=== PATIENT | male | born 1975 | race Caucasian/White ===

== ENCOUNTER 2016-12-04 14:31 | Emergency (ER) | payer MEDICAID ==
--- NOTE | 2016-12-04 15:10 | REP ---
Clinical: Trauma. Technique: AP, lateral, bilateral oblique views left foot. Comparison 06/03/2015. Findings: The osseous structures and joint spaces are intact and normal. There is no evidence for acute fracture or dislocation. Surrounding soft tissues are unremarkable. No subcutaneous emphysema or radiodense foreign body. Lateral view demonstrates small calcaneal heal spur. Impression: No acute fracture or dislocation. Signed by Richard Mehta MD 12/04/2016 03:02 P
--- NOTE | 2016-12-04 15:51 | EDDOCDS ---
Physician Documentation [facility] Name: Toney Yost Age: 41 yrs Sex: Male : 1975 Arrival Date: 12/04/2016 Time: 14:31 Bed I6 / Private MD: No Pcp Disposition: 12/04/16 15:35 Discharged to Home/Self Care. Impression: Sprain of tarsal ligament of left foot, Sprain of tarsometatarsal ligament of left foot. - Condition is Stable. - Discharge Instructions: Foot Sprain. - Medication Reconciliation, Local Pharmacy Hours, Work Release Form - 1 day form. - Follow up: Orthopaedics, [facility]; When: Call to arrange an appointment; Reason: Further diagnostic work-up, Recheck today's complaints, Continuance of care. - Problem is new. - Symptoms are unchanged. Historical: - Allergies: no known allergies; - Home Meds: 1. none - PMHx: Stroke; Thyroid problem; hernia; - PSHx: rt hand surgery; - Social history: Smoking status: Patient uses tobacco products, current every day smoker. No barriers to communication noted, The patient speaks fluent Mauritian, Speaks appropriately for age. - Family history: Not pertinent. - : The pt / caregiver states he / she is not on anticoagulants. Home medication list is obtained from the patient. - Exposure Risk Screening:: None identified. Vital Signs: 12/04 14:33 BP 126 / 71; Pulse 98; Resp 18 S; Temp 97.8(O); Pulse Ox 99% on R/A; Weight 90.72 kg / gr2 200 lbs (R); Height 5 ft. 9 in. (175.26 cm) (R); Pain 9/10; 15:47 BP 120 / 78; Pulse 91; Resp 18; Temp 97.3; Pulse Ox 99% ; Pain 10/10; pml 14:33 Body Mass Index 29.53 (90.72 kg, 175.26 cm) gr2 MDM: 14:40 Foot, Complete Ordered. EDMS 15:35 Mane Wrap ordered. btw Signatures: Dispatcher [employer] EDMS Herminia Kenney RN RN srm Wolfenden, Brandon, PA PA btw Jennifer Ellington RN RN pml MTDD
--- NOTE | 2016-12-04 15:51 | EDDOCDS ---
Nurse's Notes [facility] Name: Toney Yost Age: 41 yrs Sex: Male : 1975 Arrival Date: 12/04/2016 Time: 14:31 Bed I6 / 28 Private MD: No Pcp Diagnosis: Sprain of tarsal ligament of left foot;Sprain of tarsometatarsal ligament of left foot Presentation: 12/04 14:36 Presenting complaint: Patient states: fell yesterday injuring left foot. Adult Sepsis srm Screening: The patient does not have new or worsening altered mentation. Patient's respiratory rate is less than 22. Systolic blood pressure is greater than 100. Patient has a qSOFA score of 0- Negative Sepsis Screen. Suicide/Homicide risk assessment- the patient denies having any suicidal and/or homicidal ideations and does not present with any other emotional, behavioral or mental health complaints. Status: Patient is not a district service manager or dependent. Transition of care: patient was not received from another setting of care. 14:36 Acuity: CHARLES Level 4 srm 14:36 Method Of Arrival: Walkin/Carried/Asstd srm Triage Assessment: 14:37 General: Appears in no apparent distress, Behavior is appropriate for age, cooperative. srm Pain: Pain currently is 10 out of 10 on a pain scale. HIV screening NA for this visit Offered previously. Musculoskeletal: Circulation, motion, and sensation intact Capillary refill < 3 seconds in left toes. 14:39 Musculoskeletal: no swelling or bruising noted to left foot. srm Historical: - Allergies: no known allergies; - Home Meds: 1. none - PMHx: Stroke; Thyroid problem; hernia; - PSHx: rt hand surgery; - Social history: Smoking status: Patient uses tobacco products, current every day smoker. No barriers to communication noted, The patient speaks fluent Vietnamese, Speaks appropriately for age. - Family history: Not pertinent. - : The pt / caregiver states he / she is not on anticoagulants. Home medication list is obtained from the patient. - Exposure Risk Screening:: None identified. Screenin:47 Screening information is obtained from the patient. Fall risk: No risks identified. pml Assistance ADL's: requires no assistance with activities of daily living. Abuse/DV Screen: The patient / caregiver reports he/she is: not in a situation that causes fear, pain or injury. Nutritional screening: No deficits noted. Advance Directives: Currently, there is no health care proxy. home support is adequate. Assessment: 15:47 General: Appears in no apparent distress, comfortable, Behavior is appropriate for age, pml cooperative. Pain: Location: left foot Pain currently is 10 out of 10 on a pain scale. Neurological: Level of Consciousness is awake, alert, Oriented to person, place, time. Cardiovascular: Capillary refill < 3 seconds. Respiratory: Airway is patent Respiratory effort is even, unlabored, Respiratory pattern is regular, symmetrical. GI: Abdomen is non- distended. Derm: Skin is pink, warm & dry. Musculoskeletal: Circulation, motion, and sensation intact Capillary refill < 3 seconds No deformity noted Swelling absent. Vital Signs: 14:33 BP 126 / 71; Pulse 98; Resp 18 S; Temp 97.8(O); Pulse Ox 99% on R/A; Weight 90.72 kg gr2 (R); Height 5 ft. 9 in. (175.26 cm) (R); Pain 9/10; 15:47 BP 120 / 78; Pulse 91; Resp 18; Temp 97.3; Pulse Ox 99% ; Pain 10/10; pml 14:33 Body Mass Index 29.53 (90.72 kg, 175.26 cm) gr2 Vitals: 14:33 Log In Time: December 04, 2016 at 14:33. gr2 ED Course: 14:32 Patient visited by Lv Suárez. gr2 14:32 Patient moved to Waiting gr2 14:33 No Pcp is Private Physician. gr2 14:35 Patient visited by Lv Suárez. gr2 14:35 Patient moved to Pre RCE gr2 14:37 Triage Initiated srm 15:14 Behzad Rolon PA is PHCP. btw 15:14 Farrah Cullen MD is Attending Physician. btw 15:14 Patient moved to I btw 15:34 Patient visited by Behzad Rolon PA. btw 15:[facility] btw 15:47 The patient / caregiver is instructed regarding the plan of care and ED course. Patient pml has correct armband on for positive identification. Bed in low position. Side rails up X2. 15:48 Foot, Complete Returned. EDMS 15:49 No IV's were initiated during this patient's visit. No procedures done that require pml assistance. Order Results: Radiology Order: Foot, Complete Test: Foot, Complete REASON FOR EXAMINATION: Trauma; Clinical: Trauma.; ; Technique: AP, lateral, bilateral oblique views left foot.; ; Comparison 06/03/2015.; ; Findings: The osseous structures and joint spaces are intact and normal. There; is no evidence for acute fracture or dislocation. Surrounding soft tissues are; unremarkable. No subcutaneous emphysema or radiodense foreign body. Lateral view; demonstrates small calcaneal heal spur.; ; Impression:; No acute fracture or dislocation.; ; ; Signed by; Richard Mehta MD 12/04/2016 03:02 P; Outcome: 15:35 Discharge ordered by Provider. btw 15:49 Discharge Assessment: Patient awake, alert and oriented x 3. No cognitive and/or pml functional deficits noted. Patient verbalized understanding of disposition instructions. patient administered narcotics - no. The following High Risk Discharge criteria are identified: None. Discharged to home ambulatory. Condition: good Condition: stable. Discharge instructions given to patient, Instructed on discharge instructions, follow up and referral plans. Rest, Ice, Compression and Elevation. Demonstrated understanding of instructions, Pt was receptive of discharge instructions/ teaching. No special radiology studies were completed. Property sent home with patient. 15:50 Patient left the ED. pml Signatures: Dispatcher [employer] EDMS Herminia Kenney, RN Behzad Fonseca PA PA btw Jennifer Ellington RN RN pml Raymond, Gainslee gr2 MTDDaisy
--- NOTE | 2016-12-06 16:51 | EDDOCDS ---
Nurse's Notes [facility] Name: Toney Yost Age: 41 yrs Sex: Male : 1975 Arrival Date: 12/04/2016 Time: 14:31 Bed I6 / 28 Private MD: No Pcp Diagnosis: Sprain of tarsal ligament of left foot;Sprain of tarsometatarsal ligament of left foot Presentation: 12/04 14:36 Presenting complaint: Patient states: fell yesterday injuring left foot. Adult Sepsis srm Screening: The patient does not have new or worsening altered mentation. Patient's respiratory rate is less than 22. Systolic blood pressure is greater than 100. Patient has a qSOFA score of 0- Negative Sepsis Screen. Suicide/Homicide risk assessment- the patient denies having any suicidal and/or homicidal ideations and does not present with any other emotional, behavioral or mental health complaints. Status: Patient is not a residential service technician or dependent. Transition of care: patient was not received from another setting of care. 14:36 Acuity: CHARLES Level 4 srm 14:36 Method Of Arrival: Walkin/Carried/Asstd srm Triage Assessment: 14:37 General: Appears in no apparent distress, Behavior is appropriate for age, cooperative. srm Pain: Pain currently is 10 out of 10 on a pain scale. HIV screening NA for this visit Offered previously. Musculoskeletal: Circulation, motion, and sensation intact Capillary refill < 3 seconds in left toes. 14:39 Musculoskeletal: no swelling or bruising noted to left foot. srm Historical: - Allergies: no known allergies; - Home Meds: 1. none - PMHx: Stroke; Thyroid problem; hernia; - PSHx: rt hand surgery; - Social history: Smoking status: Patient uses tobacco products, current every day smoker. No barriers to communication noted, The patient speaks fluent Czech, Speaks appropriately for age. - Family history: Not pertinent. - : The pt / caregiver states he / she is not on anticoagulants. Home medication list is obtained from the patient. - Exposure Risk Screening:: None identified. Screenin:47 Screening information is obtained from the patient. Fall risk: No risks identified. pml Assistance ADL's: requires no assistance with activities of daily living. Abuse/DV Screen: The patient / caregiver reports he/she is: not in a situation that causes fear, pain or injury. Nutritional screening: No deficits noted. Advance Directives: Currently, there is no health care proxy. home support is adequate. Assessment: 15:47 General: Appears in no apparent distress, comfortable, Behavior is appropriate for age, pml cooperative. Pain: Location: left foot Pain currently is 10 out of 10 on a pain scale. Neurological: Level of Consciousness is awake, alert, Oriented to person, place, time. Cardiovascular: Capillary refill < 3 seconds. Respiratory: Airway is patent Respiratory effort is even, unlabored, Respiratory pattern is regular, symmetrical. GI: Abdomen is non- distended. Derm: Skin is pink, warm & dry. Musculoskeletal: Circulation, motion, and sensation intact Capillary refill < 3 seconds No deformity noted Swelling absent. Vital Signs: 14:33 BP 126 / 71; Pulse 98; Resp 18 S; Temp 97.8(O); Pulse Ox 99% on R/A; Weight 90.72 kg gr2 (R); Height 5 ft. 9 in. (175.26 cm) (R); Pain 9/10; 15:47 BP 120 / 78; Pulse 91; Resp 18; Temp 97.3; Pulse Ox 99% ; Pain 10/10; pml 14:33 Body Mass Index 29.53 (90.72 kg, 175.26 cm) gr2 Vitals: 14:33 Log In Time: December 04, 2016 at 14:33. gr2 ED Course: 14:32 Patient visited by Lv Suárez. gr2 14:32 Patient moved to Waiting gr2 14:33 No Pcp is Private Physician. gr2 14:35 Patient visited by Lv Suárez. gr2 14:35 Patient moved to Pre RCE gr2 14:37 Triage Initiated srm 15:14 Behzad Rolon PA is PHCP. btw 15:14 Farrah Cullen MD is Attending Physician. btw 15:14 Patient moved to I btw 15:34 Patient visited by Behzad Rolon PA. btw 15:[facility] btw 15:47 The patient / caregiver is instructed regarding the plan of care and ED course. Patient pml has correct armband on for positive identification. Bed in low position. Side rails up X2. 15:48 Foot, Complete Returned. EDMS 15:49 No IV's were initiated during this patient's visit. No procedures done that require pml assistance. 16:25 [facility] Payment Agreement was scanned into [employer] and attached to record. [facility] 21:19 T-Sheet-- Draft Copy was scanned into [employer] and attached to record. klr Order Results: Radiology Order: Foot, Complete Test: Foot, Complete REASON FOR EXAMINATION: Trauma; Clinical: Trauma.; ; Technique: AP, lateral, bilateral oblique views left foot.; ; Comparison 06/03/2015.; ; Findings: The osseous structures and joint spaces are intact and normal. There; is no evidence for acute fracture or dislocation. Surrounding soft tissues are; unremarkable. No subcutaneous emphysema or radiodense foreign body. Lateral view; demonstrates small calcaneal heal spur.; ; Impression:; No acute fracture or dislocation.; ; ; Signed by; Richard Mehta MD 12/04/2016 03:02 P; Outcome: 15:35 Discharge ordered by Provider. [facility] 15:49 Discharge Assessment: Patient awake, alert and oriented x 3. No cognitive and/or pml functional deficits noted. Patient verbalized understanding of disposition instructions. patient administered narcotics - no. The following High Risk Discharge criteria are identified: None. Discharged to home ambulatory. Condition: good Condition: stable. Discharge instructions given to patient, Instructed on discharge instructions, follow up and referral plans. Rest, Ice, Compression and Elevation. Demonstrated understanding of instructions, Pt was receptive of discharge instructions/ teaching. No special radiology studies were completed. Property sent home with patient. 15:50 Patient left the ED. pml Signatures: Dispatcher [facility] EDAZ Herminia Kenney RN RN srm Wolfenden, Brandon, PA PA btw Jennifer Ellignton RN RN pml Raymond, Gainslee gr2 Leslie Noe Kathie klr Chart Complete MTDD
--- NOTE | 2016-12-06 16:51 | EDDOCDS ---
Physician Documentation [facility] Name: Toney Yost Age: 41 yrs Sex: Male : 1975 Arrival Date: 12/04/2016 Time: 14:31 Bed I6 / Private MD: No Pcp Disposition: 12/04/16 15:35 Discharged to Home/Self Care. Impression: Sprain of tarsal ligament of left foot, Sprain of tarsometatarsal ligament of left foot. - Condition is Stable. - Discharge Instructions: Foot Sprain. - Medication Reconciliation, Local Pharmacy Hours, Work Release Form - 1 day form. - Follow up: Orthopaedics, [facility]; When: Call to arrange an appointment; Reason: Further diagnostic work-up, Recheck today's complaints, Continuance of care. - Problem is new. - Symptoms are unchanged. Historical: - Allergies: no known allergies; - Home Meds: 1. none - PMHx: Stroke; Thyroid problem; hernia; - PSHx: rt hand surgery; - Social history: Smoking status: Patient uses tobacco products, current every day smoker. No barriers to communication noted, The patient speaks fluent Paraguayan, Speaks appropriately for age. - Family history: Not pertinent. - : The pt / caregiver states he / she is not on anticoagulants. Home medication list is obtained from the patient. - Exposure Risk Screening:: None identified. Vital Signs: 12/04 14:33 BP 126 / 71; Pulse 98; Resp 18 S; Temp 97.8(O); Pulse Ox 99% on R/A; Weight 90.72 kg / gr2 200 lbs (R); Height 5 ft. 9 in. (175.26 cm) (R); Pain 9/10; 15:47 BP 120 / 78; Pulse 91; Resp 18; Temp 97.3; Pulse Ox 99% ; Pain 10/10; pml 14:33 Body Mass Index 29.53 (90.72 kg, 175.26 cm) gr2 MDM: 14:40 Foot, Complete Ordered. EDMS 15:35 Mane Wrap ordered. btw [facility] was scanned into [employer] and attached to record. b 16:25 Financial registration complete. gjb 21:19 T-Sheet-- Draft Copy was scanned into [employer] and attached to record. klr Signatures: Dispatcher [employer] Herminia Salmeron RN RN srm Wolfenden, Brandon, PA PA btw Quay, Paulina, RN RN pml Beck, Gabriela gjb Redder, Kathie klr The chart was reviewed and I authenticate all verbal orders and agree with the evaluation and treatment provided.Attachments: 16:25 [facility] Payment Agreement gjbro 21:19 T-Sheet-- Draft Copy klr Chart Complete MTDD
--- NOTE | 2016-12-06 16:51 | EDDOCDS ---
Physician Documentation [facility] Name: Toney Yost Age: 41 yrs Sex: Male : 1975 Arrival Date: 12/04/2016 Time: 14:31 Bed I6 / Private MD: No Pcp Disposition: 12/04/16 15:35 Discharged to Home/Self Care. Impression: Sprain of tarsal ligament of left foot, Sprain of tarsometatarsal ligament of left foot. - Condition is Stable. - Discharge Instructions: Foot Sprain. - Medication Reconciliation, Local Pharmacy Hours, Work Release Form - 1 day form. - Follow up: Orthopaedics, [facility]; When: Call to arrange an appointment; Reason: Further diagnostic work-up, Recheck today's complaints, Continuance of care. - Problem is new. - Symptoms are unchanged. Historical: - Allergies: no known allergies; - Home Meds: 1. none - PMHx: Stroke; Thyroid problem; hernia; - PSHx: rt hand surgery; - Social history: Smoking status: Patient uses tobacco products, current every day smoker. No barriers to communication noted, The patient speaks fluent Belgian, Speaks appropriately for age. - Family history: Not pertinent. - : The pt / caregiver states he / she is not on anticoagulants. Home medication list is obtained from the patient. - Exposure Risk Screening:: None identified. Vital Signs: 12/04 14:33 BP 126 / 71; Pulse 98; Resp 18 S; Temp 97.8(O); Pulse Ox 99% on R/A; Weight 90.72 kg / gr2 200 lbs (R); Height 5 ft. 9 in. (175.26 cm) (R); Pain 9/10; 15:47 BP 120 / 78; Pulse 91; Resp 18; Temp 97.3; Pulse Ox 99% ; Pain 10/10; pml 14:33 Body Mass Index 29.53 (90.72 kg, 175.26 cm) gr2 MDM: 14:40 Foot, Complete Ordered. EDMS 15:35 Mane Wrap ordered. btw 16:25 [facility] Agreement was scanned into [employer] and attached to record. b 16:25 Financial registration complete. gjb 21:19 T-Sheet-- Draft Copy was scanned into [employer] and attached to record. klr Signatures: Dispatcher [employer] Herminia Salmeron RN RN srm Wolfenden, Brandon, PA PA btw Quay, Paulina, RN RN pml Beck, Gabriela gjb Redder, Kathie klr The chart was reviewed and I authenticate all verbal orders and agree with the evaluation and treatment provided.Attachments: 16:25 [facility] Payment Agreement gjbro 21:19 T-Sheet-- Draft Copy klr Chart Complete MTDD
== END 2016-12-04 15:50 | disposition home or self-care (01) ==
LOC: M ED 14:31
DX: S93.612A Sprain of tarsal ligament of left foot, initial encounter (principal); S93.622A Sprain of tarsometatarsal ligament of left foot, initial encounter; W00.0XXA Fall on same level due to ice and snow, initial encounter; Y92.098 Other place in other non-institutional residence as the place of occurrence of the external cause; Y93.89 Activity, other specified; Y99.8 Other external cause status; F17.210 Nicotine dependence, cigarettes, uncomplicated

== ENCOUNTER 2018-06-15 18:32 | Emergency (ER) | payer MEDICAID, SELFPAY ==
[2018-06-15] MEDS: ceFAZolin SOD 1 GM in D5W MINI-BAG PLUS 50 ML IV (19:21)
[2018-06-15 19:23] LABS: BASO # 0.1 10^3/uL (0.0-0.2); BASO % 0.7 % (0.0-1.0); EOS # 0.2 10^3/uL (0.0-0.50); EOS % 1.9 % (0.0-3.0); HEMATOCRIT 43.6 % (42.0-52.0); HEMOGLOBIN 14.6 g/dl (13.5-17.5); IMMATURE GRANULOCYTE % 0.2 % (0-3.0); LYMPH % 31.4 % (24.0-44.0); MEAN CORPUSCULAR HEMOGLOBIN 31.7 pg (27.0-33.0); MEAN CORPUSCULAR HGB CONC 33.5 g/dl (32.0-36.5); MEAN CORPUSCULAR VOLUME 94.8 fl (80.0-96.0); MONO # 1.1 10^3/uL (0.0-0.8); MONO % 11.2 % (0.0-5.0); NEUTROPHILS # 5.2 10^3/uL (1.8-7.7); NEUTROPHILS % 54.6 % (36.0-66.0); PLATELET COUNT, AUTOMATED 258 10^3/uL (150-450); RED CELL DISTRIBUTION WIDTH 12.5 % (11.5-14.5); WHITE BLOOD COUNT 9.6 10^3/uL (4.0-10.0)
[2018-06-15 19:51] LABS: ANION GAP 5 MEQ/L (8-16); BLOOD UREA NITROGEN 12 MG/DL (7-18); CALCIUM LEVEL 8.9 MG/DL (8.5-10.1); CARBON DIOXIDE LEVEL 30 MEQ/L (21-32); CHLORIDE LEVEL 107 MEQ/L (98-107); CREATININE FOR GFR 1.15 MG/DL (0.70-1.30); GLOMERULAR FILTRATION RATE > 60.0 (>60); GLUCOSE, FASTING 76 MG/DL (70-100); POTASSIUM SERUM 3.7 MEQ/L (3.5-5.1); SODIUM LEVEL 142 MEQ/L (136-145)
[2018-06-15] MEDS: MORPHINE 4 MG/ML 1ML VIAL/SYRINGE (J2270) IV ×2 (20:13)
[2018-06-15] MEDS: LIDOCAINE 2% MDV 20 ML VIAL SC ×2 (20:14)
[2018-06-15] MEDS: NORCO 5/325MG TABLET (BULK FOR ED) PO ×2 (21:45)
== END 2018-06-15 21:44 | disposition home or self-care (01) ==
LOC: M ED 18:32
DX: S63.121A Subluxation of interphalangeal joint of right thumb, initial encounter (principal); V18.0XXA Pedal cycle driver injured in noncollision transport accident in nontraffic accident, initial encounter; Y92.410 Unspecified street and highway as the place of occurrence of the external cause; F17.210 Nicotine dependence, cigarettes, uncomplicated; Z98.890 Other specified postprocedural states
CPT/HCPCS: J0690

== ENCOUNTER → 2018-12-11 | Outpatient (REF) | payer MEDICAID, OTHER ==
[~2018-12-11] MED LIST: KEFL500C17 PO; NORCOTAB PO
[2018-12-11 19:33] LABS: BASO # 0.1 10^3/uL (0.0-0.2); BASO % 0.8 % (0.0-1.0); EOS # 0.2 10^3/uL (0.0-0.50); EOS % 1.7 % (0.0-3.0); HEMATOCRIT 53.1 % (42.0-52.0); HEMOGLOBIN 17.8 g/dl (13.5-17.5); LYMPH # 3.2 10^3/uL (1.5-4.5); MEAN CORPUSCULAR HEMOGLOBIN 30.3 pg (27.0-33.0); MEAN CORPUSCULAR HGB CONC 33.5 g/dl (32.0-36.5); MEAN CORPUSCULAR VOLUME 90.5 fl (80.0-96.0); MONO # 0.9 10^3/uL (0.0-0.8); MONO % 7.9 % (0.0-5.0); NEUTROPHILS # 6.6 10^3/uL (1.8-7.7); NEUTROPHILS % 60.2 % (36.0-66.0); PLATELET COUNT, AUTOMATED 329 10^3/uL (150-450); RED BLOOD COUNT 5.87 10^6/uL (4.30-6.10); WHITE BLOOD COUNT 10.9 10^3/uL (4.0-10.0)
[2018-12-11 20:29] LABS: HEMOGLOBIN A1c 5.8 %
[2018-12-11 22:56] LABS: ALT/SGPT 41 U/L (12-78); BILIRUBIN,TOTAL 0.2 MG/DL (0.2-1.0); BLOOD UREA NITROGEN 14 MG/DL (7-18); CALCIUM LEVEL 8.7 MG/DL (8.5-10.1); CARBON DIOXIDE LEVEL 28 MEQ/L (21-32); CHLORIDE LEVEL 106 MEQ/L (98-107); CHOLESTEROL LEVEL 222 MG/DL (<200); CHOLESTEROL RISK RATIO 5.045 (<5); CREATININE FOR GFR 0.89 MG/DL (0.70-1.30); FREE T4 0.92 NG/DL (0.76-1.46); GLOMERULAR FILTRATION RATE > 60.0 (>60); GLUCOSE, FASTING 89 MG/DL (70-100); HDL CHOLESTEROL 44 MG/DL (>40); LDL CHOLESTEROL 129 MG/DL (<100); NON-HDL-C 178 MG/DL; POTASSIUM SERUM 4.8 MEQ/L (3.5-5.1); SODIUM LEVEL 139 MEQ/L (136-145); TOTAL PROTEIN 8.3 GM/DL (6.4-8.2); TRIGLYCERIDES LEVEL 247 MG/DL (<150)
[2018-12-12 09:03] LABS: TOTAL 25(OH) VITAMIN D 14.5 NG/ML (30.0-100.0)
[2018-12-14 00:07] LABS: Lyme Disease IgG/IgM Antibodie <0.91 ISR (0.00-0.90); Lyme Disease IgM Ab Quantitati <0.80 index (0.00-0.79)
== END ==
LOC: M LAB REF 19:02
PROVIDERS: ATTEND Family Medicine
DX: Z86.73 Personal history of transient ischemic attack (TIA), and cerebral infarction without residual deficits (principal); Z00.01 Encounter for general adult medical examination with abnormal findings

== ENCOUNTER 2020-11-26 23:41 | Emergency (ER) | payer OTHER ==
[~2020-11-26] VITALS: Ht 175.3 cm; Wt 92.0 kg
[~2020-11-26 23:41] MED LIST changes: +HYDR-3715 PO; -NORCOTAB PO
[2020-11-26] MEDS ORDERED: IBUP1TAB7 PO (23:49)
--- OUTSIDE RECORDS SUMMARY | 2020-11-26 23:49 | CCD ---
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 11/20/2020 F17.200 Tobacco Use Disorder, Moderate Active F12.10 Cannabis Use Disorder, Mild Active 11/20/2020 Medications No Data in Section Social History Social History Element Description Concept Effective Date Smoking Status Unknown if ever smoked [id number] Immunizations No Data in Section Vital Signs No Data in Section Procedures Date Concept Id Description Targeted Site Concept Targeted Site Concept Type 11/20/2020 91891 Extended Individual Psychotherapy - 45 min CPT Patient has no history of implantable de vices Encounters Encounter Start Date End Date Encounter Type Description Diagnosis Di agnosis Desc Location Author First Name Author Last Name Npid Taxonomy Cod e Taxonomy Desc Phone Number Location Addr1 Location Addr2 Location [facility] Location Sta Location [facility] [id number] 11/20/2020 11/20/2020 17073 Extended Individual Psych otherapy - 45 min F28 Other Specified Schizophrenia Spectrum and Other Psych otic Disorder [facility] Arash Myers [id number] Impression Printer [phone] [address] [phone] Plan of Treatment No Data in Section Lab Results No Data in Section Instructions No Data in Section Insurance Providers Insurance Id Policy Effective Date Policy Thru Date Company N chriss [id number] 2020 TRAM - MEDICA ID MANAGED
--- OUTSIDE RECORDS SUMMARY | 2020-11-26 23:49 | CCD ---
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 Active 10/30/2020 F17.200 Tobacco Use Disorder, Moderate Active F12.10 Cannabis Use Disorder, Mild Active 10/30/2020 Medications No Data in Section Social History Social History Element Description Concept Effective Date Smoking Status Unknown if ever smoked [id number] Immunizations No Data in Section Vital Signs No Data in Section Procedures Date Concept Id Description Targeted Site Concept Targeted Site Concept Type 10/30/2020 86419 Brief Individual Psychotherapy - 30 min CPT Patient has no history of implantable de vices Encounters Encounter Start Date End Date Encounter Type Description Diagnosis Di agnosis Desc Location Author First Name Author Last Name Npid Taxonomy Cod e Taxonomy Desc Phone Number Location Addr1 Location Addr2 Location [facility] Location [facility] Location [facility] [place] [id number] 10/30/2020 10/30/2020 79492 Brief Individual Psychothera py - 30 min F28 Other Specified Schizophrenia Spectrum and Other Psychotic Disorder [facility] Arash Myers [phone] [id number] Social Wo rker [phone] [address] [phone] Plan of Treatment No Data in Section Lab Results No Data in Section Instructions No Data in Section Insurance Providers Insurance Id Policy Effective Date Policy Thru Date Company N chriss [id number] 2020 MEDICAID
--- OUTSIDE RECORDS SUMMARY | 2020-11-26 23:50 | CCD ---
Author Author Toney Antoine Organization Unknown Address [address] [address] Phone Care Team Providers Care Human Resources Clerk Name Role Phone Louis Antoine PCP Chief Complaint and Reason for Visit Chief Complaint Allergies, Adverse Reactions, Alerts Concept Allergy Name Reaction Severity Onset Date Status Documentation Date Phone Number Npid Taxonomy Code Taxonomy Desc Author Last Name Author Fi rst Name Concept Type [id number] nkda Active 09/27/2018 RXNORM Problem List Concept Problem Description Status Start Date Created Date Resolv ed Date Snomed Code F28 Other Specified Schizophrenia Spectrum and Other Psychotic Disorder Active 10/12/2020 F17.200 Tobacco Use Disorder, Moderate Active 0 F12.10 Cannabis Use Disorder, Mild Active 10/12/2020 Medications No Data in Section Social History Social History Element Description Concept Effective Date Smoking Status Unknown if ever smoked [id number] Immunizations No Data in Section Vital Signs No Data in Section Procedures Date Concept Id Description Targeted Site Concept Targeted Site Concept Type 10/12/2020 24051 Brief Individual Psychotherapy - 30 min CPT Patient has no history of implantable de vices Encounters Encounter Start Date End Date Encounter Type Description Diagnosis Di agnosis Desc Location Author First Name Author Last Name Npid Taxonomy Cod e Taxonomy Desc Phone Number Location Addr1 Location Addr2 Location [facility] Location [facility] Location [facility] [id number] 10/12/2020 10/12/2020 21965 Brief Individual Psychothera py - 30 min F28 Other Specified Schizophrenia Spectrum and Other Psychotic Disorder [facility] Arash Myers [id number] Social Wo rker [phone] [address] [phone] Plan of Treatment No Data in Section Lab Results No Data in Section Instructions No Data in Section Insurance Providers Insurance Id Policy Effective Date Policy Thru Date Company N chriss [id number] 2020 MEDICAID
--- OUTSIDE RECORDS SUMMARY | 2020-11-26 23:50 | CCD ---
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 10/23/2020 F17.200 Tobacco Use Disorder, Moderate Active F12.10 Cannabis Use Disorder, Mild Active 10/23/2020 Medications No Data in Section Social History Social History Element Description Concept Effective Date Smoking Status Unknown if ever smoked [id number] Immunizations No Data in Section Vital Signs No Data in Section Procedures Date Concept Id Description Targeted Site Concept Targeted Site Concept Type 10/23/2020 26199 Psychiatric Diagnostic Evaluation (Non-Medical) CPT Patient has no history of implantable de vices Encounters Encounter Start Date End Date Encounter Type Description Diagnosis Di agnosis Desc Location Author First Name Author Last Name Npid Taxonomy Cod e Taxonomy Desc Phone Number Location Addr1 Location Addr2 Location [facility] Location [facility] Location [place] [id number] 10/23/2020 10/23/2020 92093 Psychiatric Tressa gnostic Evaluation (Non-Medical) F28 Other Specified Schizophreni a Spectrum and Other Psychotic Disorder [facility] Arash Myers [phone] [id number] Tobacco Baler [phone] [address] [phone] Plan of Treatment No Data in Section Lab Results No Data in Section Instructions No Data in Section Insurance Providers Insurance Id Policy Effective Date Policy Thru Date Company N chriss [id number] 2020 MEDICAID
--- OUTSIDE RECORDS SUMMARY | 2020-11-26 23:50 | CCD ---
Author Author [facility] Organization [facility] Address Unknown Phone Unavailable Care Team Providers Care Plate Take Out Worker Name Role Phone LaBarge, Louis Unavailable Pola COHN MD Unavailable Unavailable Pola COHN MD Unavailable Unavailable Pola COHN MD Unavailable Unavailable Pola COHN MD Unavailable Unavailable Pola COHN MD Unavailable Unavailable Pola COHN MD Unavailable Unavailable Pola COHN MD Unavailable Unavailable Pola COHN MD Unavailable Unavailable Pola COHN MD Unavailable Unavailable Pola COHN MD Unavailable Unavailable Pola COHN MD Unavailable Unavailable Pola COHN MD Unavailable Unavailable Pola COHN MD Unavailable Unavailable Pola COHN MD Unavailable Unavailable Pola COHN MD Unavailable Unavailable Pola COHN MD Unavailable Unavailable Pola COHN MD Unavailable Unavailable Pola COHN MD Unavailable Unavailable Pola COHN MD Unavailable Unavailable Pola COHN MD Unavailable Unavailable Pola COHN MD Unavailable Unavailable Pola COHN MD Unavailable Unavailable Pola COHN MD Unavailable Unavailable Pola COHN MD Unavailable Unavailable Pola COHN MD Unavailable Unavailable Pola COHN MD Unavailable Unavailable Pola COHN MD Unavailable Unavailable Pola COHN MD Unavailable Unavailable Pola COHN MD Unavailable Unavailable Pola COHN MD Unavailable Unavailable Pola COHN MD Unavailable Unavailable Pola COHN MD Unavailable Unavailable Pola COHN MD Unavailable Unavailable Pola COHN MD Unavailable Unavailable Pola COHN MD Unavailable Unavailable Pola COHN MD Unavailable Unavailable Pola COHN MD Unavailable Unavailable Pola COHN MD Unavailable Unavailable DESIRAEPola ANGULO MD Unavailable Unavailable DESIRAEPola ANGULO MD Unavailable Unavailable Pola COHN MD Unavailable Unavailable Pola COHN MD Unavailable Unavailable Pola COHN MD Unavailable Unavailable Pola COHN MD Unavailable Unavailable Pola COHN MD Unavailable Unavailable Pola COHN MD Unavailable Unavailable Pola COHN MD Unavailable Unavailable Pola COHN MD Unavailable Unavailable Pola COHN MD Unavailable Unavailable Pola COHN MD Unavailable Unavailable Pola COHN MD Unavailable Unavailable Pola COHN MD Unavailable Unavailable Pola COHN MD Unavailable Unavailable Pola COHN MD Unavailable Unavailable Pola COHN MD Unavailable Unavailable Pola COHN MD Unavailable Unavailable Pola COHN MD Unavailable Unavailable Pola COHN MD Unavailable Unavailable Pola COHN MD Unavailable Unavailable Pola COHN MD Unavailable Unavailable Pola COHN MD Unavailable Unavailable Pola COHN MD Unavailable Unavailable Pola COHN MD Unavailable Unavailable Pola COHN MD Unavailable Unavailable Pola COHN MD Unavailable Unavailable Pola COHN MD Unavailable Unavailable Pola COHN MD Unavailable Unavailable Pola COHN MD Unavailable Unavailable Pola COHN MD Unavailable Unavailable Pola COHN MD Unavailable Unavailable Pola COHN MD Unavailable Unavailable Pola COHN MD Unavailable Unavailable Pola COHN MD Unavailable Unavailable Pola COHN MD Unavailable Unavailable Pola COHN MD Unavailable Unavailable Pola COHN MD Unavailable Unavailable Pola COHN MD Unavailable Unavailable Pola COHN MD Unavailable Unavailable Pola COHN MD Unavailable Unavailable Pola COHN MD Unavailable Unavailable Pola COHN MD Unavailable Unavailable Pola COHN MD Unavailable Unavailable Pola COHN MD Unavailable Unavailable Mini Peterson Unavailable Re-disclosure Warning The records that you are about to access may contain information from federally-assisted alcohol or drug abuse programs. If such information is present, then the following federally mandated warning applies: This information has been disclosed to you from records protected by federal confidentiality rules (42 CFR part 2). The federal rules prohibit you from making any further disclosure of this information unless further disclosure is expressly permitted by the written consent of the person to whom it pertains or as otherwise permitted by 42 CFR part 2. A general authorization for the release of medical or other information is NOT sufficient for this purpose. The Federal rules restrict any use of the information to criminally investigate or prosecute any alcohol or drug abuse patient.The records that you are about to access may contain highly sensitive health information, the redisclosure of which is protected by Article 27-F of the [facility] Public Health law. If you continue you may have access to information: Regarding HIV / AIDS; Provided by facilities licensed or operated by the [facility] Office of Mental Health; or Provided by the [facility] Office for People With Developmental Disabilities. If such information is present, then the following [facility] mandated warning applies: This information has been disclosed to you from confidential records which are protected by state law. State law prohibits you from making any further disclosure of this information without the specific written consent of the person to whom it pertains, or as otherwise permitted by law. Any unauthorized further disclosure in violation of state law may result in a fine or nursing home sentence or both. A general authorization for the release of medical or other information is NOT sufficient authorization for further disc losure. Allergies and Adverse Reactions Type Description Substance Reaction Status Data Source(s ) Propensity to adverse reactions to substance nkda 24 HR Bupropion Hydrochloride 150 MG Extended Release Oral Tablet Active [facility] ([facility]) Family History Family Member Name Family Member Gender Family Member Status Date o f Status Description Data Source(s) Unknown Male Problem [facility] ([facility]) Encounters Encounter Providers Location Date Indications Data Source(s ) Extended Individual Psychotherapy - 45 min Attender: Jim Antoine [facility] 11/20/2020 01:15:00 AM EST - 11/20/2020 01:15:00 AM EST [facility] ([facility]) Attender: Louis [facility] 11/20/2020 12:00:00 AM EST [facility] ([facility]) Brief Individual Psychotherapy - 30 min Attender: Louis lynn [facility] 10/30/2020 02:30:00 AM EST - 10/30/2020 02:30:00 AM EST [facility] ([facility]) Attender: Louis [facility] 10/30/2020 12:00:00 AM EST [facility] ([facility]) Psychiatric Diagnostic Evaluation (Non-Medical) Attender: Susy engle Arash [facility] 10/23/2020 09:00:00 AM EST - 10/23/2020 09:00:00 AM EST [facility] ([facility]) Attender: Louis [facility] 10/23/2020 12:00:00 AM EST [facility] ([facility]) Brief Individual Psychotherapy - 30 min [facility] 02:00:00 AM EST - 10/12/2020 02:00:00 AM EST [facility] ([facility]) Attender: Louis [facility] 10/12/2020 12:00:00 AM EST [facility] ([facility]) Brief Individual Psychotherapy - 30 min Attender: Mini hickey [facility] 12/24/2019 02:00:00 AM EDT - 12/24/2019 02:00:00 AM EDT [facility] ([facility]) Attender: Mini Peterson 12/24/2019 12:00:00 AM E DT [facility] ([facility]) Outpatient Attender: SAMANTHA KHANNA 11/11/2019 09:01:13 P M EST [facility] Attender: Mini Peterson 11/08/2019 12:00:[address] [facility] ([facility]) Brief Individual Psychotherapy - 30 min Attender: Mini hickey [facility] 11/07/2019 12:15:00 PM EST - 11/07/2019 12:15:00 PM EST [facility] ([facility]) Medications Medication Brand Name Start Date Product Form Dose Route Admi nistrative Instructions Pharmacy Instructions Status Indications Reaction Description Data Source(s) Sodium Chloride 0.111 MEQ/ML Nasal Solution Nasal Moist 12/03/2019 12:00:00 AM EST active [facility] ([facility]) Acetaminophen 325 MG / Chlorpheniramine Maleate 2 MG / Phenylephrine Hydrochloride 5 MG Oral Tablet Medicidin-D 11/21/2019 12:00:00 AM EST completed [facility] ([facility]) Vitamin A 56985 UNT / Vitamin D 400 UNT Oral Capsule A & D 11/14/2019 12:00:00 AM EST active [facility] ([facility]) Clotrimazole 10 MG/ML Topical Cream Anti-Fungal 11/14/2019 12:00:00 A M EST active [facility] ([facility]) Amoxicillin 875 MG Oral Tablet Amoxicillin 10/22/2019 12:00:00 AM EST ORAL active [facility] ([facility]) Escitalopram 10 MG Oral Tablet Escitalopram Oxalate 10/17/2019 1 2:00:00 AM EST ORAL active [facility] ( [facility]) topiramate 50 MG Oral Tablet Topiramate 10/17/2019 12:00:00 AM EST ORAL active [facility] ([facility]) Cholecalciferol 2000 UNT Oral Tablet Vitamin D3 10/17/2019 12:00:00 A M EST ORAL active [facility] ([facility]) atorvastatin 10 MG Oral Tablet Atorvastatin Calcium 10/17/2019 1 2:00:00 AM EST ORAL active [facility] ( [facility]) Clonidine Hydrochloride 0.1 MG Oral Tablet Clonidine HCL 10/17/2019 12:00:00 AM EST ORAL active [facility] ([facility]) Mirtazapine 30 MG Oral Tablet Mirtazapine 10/17/2019 12:00:00 AM EST ORAL active [facility] ([facility]) 12 HR Carbamazepine 100 MG Extended Release Oral Capsule Car bamazepine ER 10/17/2019 12:00:00 AM EST ORAL active [facility] ([facility]) Insurance Providers Payer name Policy type / Coverage type Policy ID Covered republican ID Covered republican's relationship to ruiz Policy Ruiz Plan Information [employer] [facility] [id number] SP [id number] [facility] P [id number] S [id number] Medicaid S [id number] S [id number] Managed Care [facility] P [id number] S [id number] Managed Care [facility] P [id number] S [id number] [employer] [facility] [id number] SP [id number] MEDICAID [id number] SP [id number] Managed Care [facility] P [id number] S [id number] Medicaid [place] [id number] Self [id number] SELF PAY ONLY [id number] SP [id number] [facility] O [id number] S [id number] MEDICAID M [id number] SELF PAY UNAVAILABLE SP UNAVAILA BLE Problems, Conditions, and Diagnoses Code Display Name Description Problem Type Effective Dates Data Source(s) F12.10 Cannabis abuse, uncomplicated Cannabis Use Disorder, M ild Condition 11/20/2020 12:00:00 AM EST [facility] ([facility]) F17.200 Nicotine dependence, unspecified, uncomp licated Tobacco Use Disorder, Moderate Condition 11/20/2020 12:00:00 AM EST [facility] ([facility]) 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 Other Specified Schizophrenia Spectrum and Other Psych otic Disorder Condition 11/20/2020 12:00:00 AM EST [facility] ([facility]) F41.1 Generalized anxiety disorder Generalized Anxiety Disor tesfaye Condition 12/24/2019 12:00:00 AM EDT [facility] ([facility]) Surgeries/Procedures Procedure Description Date Indications Data Source(s) Extended Individual Psychotherapy - 45 min 11/20/2020 12:00:00 AM EST - 11/20/2020 12:00:00 AM EST [facility] ([facility]) Extended Individual Psychotherapy - 45 min 12:00:00 AM EST [facility] ([facility]) Brief Individual Psychotherapy - 30 min 10/30/2020 12:00:00 AM EST - 10/30/2020 12:00:00 AM EST [facility] ([facility]) Brief Individual Psychotherapy - 30 min 10/30/2020 12: 00:00 AM EST [facility] ([facility]) Psychiatric Diagnostic Evaluation (Non-Medical) 10/23/2020 12:00:00 AM EST - 10/23/2020 12:00:00 AM EST [facility] ([facility]) Psychiatric Diagnostic Evaluation (Non-Medical) 2020 12:00:00 AM EST [facility] ([facility]) Brief Individual Psychotherapy - 30 min 10/12/2020 12:00:00 AM EST - 10/12/2020 12:00:00 AM EST [facility] ([facility]) Brief Individual Psychotherapy - 30 min 10/12/2020 12: 00:00 AM EST [facility] ([facility]) Brief Individual Psychotherapy - 30 min 12/24/2019 12:00:00 AM EDT - 12/24/2019 12:00:00 AM EDT [facility] ([facility]) Brief Individual Psychotherapy - 30 min 12/24/2019 12: 00:00 AM EDT [facility] ([facility]) Brief Individual Psychotherapy - 30 min 11/08/2019 12:00:00 AM EST - 11/08/2019 12:00:00 AM EST [facility] ([facility]) Brief Individual Psychotherapy - 30 min 11/07/2019 12: 00:00 AM EST [facility] ([facility]) Social History Code Duration Value Status Description Data Source(s ) Smoking 11/20/2020 12:00:00 AM EST Unknown if ever smoked comp leted Unknown if ever smoked [facility] ([facility]) Smoking 10/30/2020 12:00:00 AM EST Unknown if ever smoked comp leted Unknown if ever smoked [facility] ([facility]) Smoking 10/23/2020 12:00:00 AM EST Unknown if ever smoked comp leted Unknown if ever smoked [facility] ([facility]) Smoking 10/12/2020 12:00:00 AM EST Unknown if ever smoked comp leted Unknown if ever smoked [facility] ([facility]) Smoking 12/24/2019 12:00:00 AM EDT Unknown if ever smoked comp leted Unknown if ever smoked [facility] ([facility]) Smoking 11/08/2019 12:00:00 AM EST Unknown if ever smoked comp leted Unknown if ever smoked [facility] ([facility]) Vital Signs ID Date Data Source UNK Name Value Range Interpretation Code Description Data Source(s) Body weight 194.00 [lb_av] 194.00 [lb_av] MEDEN T ([facility]) Body temperature 97.4 [degF] 97.4 [degF] [facility] ([facility]) Respiratory rate 18 /min 18 /min [facility] ( [facility]) Heart rate 70 /min 70 /min [facility] ([facility]) Diastolic blood pressure 69 mm[Hg] 69 mm[Hg] [facility] ([facility]) Systolic blood pressure 104 mm[Hg] 104 mm[Hg] M EDENT ([facility])
[2020-11-27] MEDS ORDERED: ACETAMINOPHEN 500 MG TAB PO ONE (00:45)
[2020-11-27 01:30] LABS: BASO # 0.1 10^3/uL (0.0-0.2); BASO % 0.7 % (0.0-1.0); EOS # 0.1 10^3/uL (0.0-0.5); EOS % 1.1 % (0.0-3.0); HEMATOCRIT 47.3 % (42.0-52.0); LYMPH # 2.8 10^3/uL (1.5-5.0); LYMPH % 20.8 % (24.0-44.0); MEAN CORPUSCULAR HEMOGLOBIN 28.9 pg (27.0-33.0); MEAN CORPUSCULAR HGB CONC 31.7 g/dl (32.0-36.5); MEAN CORPUSCULAR VOLUME 91.1 fl (80.0-96.0); MONO # 2.1 10^3/uL (0.0-0.8); MONO % 15.9 % (0.0-5.0); NEUTROPHILS # 8.1 10^3/uL (1.5-8.5); PLATELET COUNT, AUTOMATED 259 10^3/uL (150-450); RED BLOOD COUNT 5.19 10^6/uL (4.30-6.10); WHITE BLOOD COUNT 13.2 10^3/uL (4.0-10.0)
[2020-11-27 01:36] VITALS: O2SAT 93
--- OUTSIDE RECORDS SUMMARY | 2020-11-27 01:39 | CCD ---
Author Author [facility] Organization [facility] Address Unknown Phone Unavailable Care Team Providers Care Sound Engineer Name Role Phone LaBarge, Louis Unavailable Pola [...] Unavailable Pola COHN MD Unavailable Unavailable Pola CONH MD Unavailable Unavailable Pola COHN MD Unavailable [...] is protected by Article 27-F of the [place] [facility] Public Health law. If you continue you may have access to information: Regarding HIV / AIDS; Provided by facilities licensed or operated by the [facility] Office of Mental Health; or Provided by the [facility] Office for People With Developmental Disabilities. If such information is present, then the following [facility] mandated warning applies: This information has been [...] law may result in a fine or prison sentence or both. A general authorization for the release of medical or other information is NOT sufficient authorization for further disc losure. Allergies and Adverse Reactions Type Description Substance Reaction Status Data Source(s ) Propensity to adverse reactions to substance nkda 24 HR Bupropion Hydrochloride 150 MG Extended Release Oral Tablet Active [facility] ([facility]) Family History Family Member Name Family Member Gender Family Member Status Date o f Status Description Data Source(s) Unknown Male Problem [facility] ([facility]) Encounters Encounter Providers Location Date Indications Data Source(s ) Extended Individual Psychotherapy - 45 min Attender: Jim Antoine [facility] 11/20/2020 01:15:00 AM EST - 11/20/2020 01:15:00 AM EST [facility] ([facility]) Attender: Louis Sparrow [facility] 11/20/2020 12:00:00 AM EST [facility] ([facility]) Brief Individual Psychotherapy - 30 min Attender: Louis lynn [facility] 10/30/2020 02:30:00 AM EST - 10/30/2020 02:30:00 AM EST [facility] ([facility]) Attender: Louis Sparrow [facility] 10/30/2020 12:00:00 AM EST [facility] ([facility]) Psychiatric Diagnostic Evaluation (Non-Medical) Attender: Susy engle Arash [facility] 10/23/2020 09:00:00 AM EST - 10/23/2020 09:00:00 AM EST [facility] ([facility]) Attender: Louis Sparrow [facility] 10/23/2020 12:00:00 AM EST [facility] ([facility]) Brief Individual Psychotherapy - 30 [facility] 02:00:00 AM EST - 10/12/2020 02:00:00 AM EST [facility] ([facility]) Attender: Louis Sparrow [facility] 10/12/2020 12:00:00 AM EST [facility] ([facility]) Brief Individual Psychotherapy - 30 min Attender: Mini hickey [facility] 12/24/2019 02:00:00 AM EDT - 12/24/2019 02:00:00 AM EDT [facility] ([facility]) Attender: Mini Peterson 12/24/2019 12:00:00 AM E DT [facility] ([facility]) Outpatient Attender: SAMANTHA KHANNA 11/11/2019 09:01:13 P M EST [facility] Attender: Mini Peterson 11/08/2019 12:00:[address] [facility] ([facility]) Brief Individual Psychotherapy - 30 min Attender: Mini hickey [facility] 11/07/2019 12:15:00 PM EST - 11/07/2019 12:15:00 PM EST [facility] ([facility]) Medications Medication Brand Name Start Date Product Form Dose Route Admi nistrative Instructions Pharmacy Instructions Status Indications Reaction Description Data Source(s) Sodium Chloride 0.111 MEQ/ML Nasal Solution Nasal Moist 12/03/2019 12:00:00 AM EST active [facility] ([facility]) Acetaminophen 325 MG / Chlorpheniramine Maleate 2 MG / Phenylephrine Hydrochloride 5 MG Oral Tablet Medicidin-D 11/21/2019 12:00:00 AM EST completed [facility] ([facility]) Vitamin A 97403 UNT / Vitamin D 400 UNT Oral Capsule A & D 11/14/2019 12:00:00 AM EST active [facility] ([facility]) Clotrimazole 10 MG/ML Topical Cream Anti-Fungal 11/14/2019 12:00:00 A M EST active [facility] ([facility]) Amoxicillin 875 MG Oral Tablet Amoxicillin 10/22/2019 12:00:00 AM EST ORAL active [facility] ([facility]) Escitalopram 10 MG Oral Tablet Escitalopram Oxalate 10/17/2019 1 2:00:00 AM EST ORAL active [facility] ( [facility]) topiramate 50 MG Oral Tablet Topiramate 10/17/2019 12:00:00 AM EST ORAL active [facility] ([facility]) Cholecalciferol 2000 UNT Oral Tablet Vitamin D3 10/17/2019 12:00:00 A M EST ORAL active [facility] ([facility]) atorvastatin 10 MG Oral Tablet Atorvastatin Calcium 10/17/2019 1 2:00:00 AM EST ORAL active [facility] ( [facility]) Clonidine Hydrochloride 0.1 MG Oral Tablet Clonidine HCL 10/17/2019 12:00:00 AM EST ORAL active [facility] ([facility]) Mirtazapine 30 MG Oral Tablet Mirtazapine 10/17/2019 12:00:00 AM EST ORAL active [facility] ([facility] 12 HR Carbamazepine 100 MG Extended Release Oral Capsule Car bamazepine ER 10/17/2019 12:00:00 AM EST ORAL active [facility] ([facility]) Insurance Providers Payer name Policy type / Coverage type Policy ID Covered republican ID Covered republican's relationship to ruiz Policy Ruiz Plan Information [employer] [facility] [id number] SP [id number] [facility] P [id number] S [id number] Medicaid S [id number] S [id number] Managed Care [facility] P [id number] S [id number] Managed Care [facility] P [id number] S [id number] [facility] [id number] SP [id number] MEDICAID [id number] SP [id number] Managed Care [facility] P [id number] S [id number] Medicaid [place] Medicaid [id number] Self [id number] SELF PAY ONLY [id number] SP [id number] [facility] O [id number] S [id number] MEDICAID M [id number] SELF PAY UNAVAILABLE SP UNAVAILA BLE Problems, Conditions, and Diagnoses Code Display Name Description Problem Type Effective Dates Data Source(s) F12.10 Cannabis abuse, uncomplicated Cannabis Use Disorder, M ild Condition 11/20/2020 12:00:00 AM EST [facility] ([facility]) F17.200 Nicotine dependence, unspecified, uncomp licated Tobacco Use Disorder, Moderate Condition 11/20/2020 12:00:00 AM EST [facility] ([facility]) 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) Brief Individual Psychotherapy - 30 min 10/30/2020 12:00:00 AM EST - 10/30/2020 12:00:00 AM EST [facility] ([facility]) Brief Individual Psychotherapy - 30 min 10/30/2020 12: 00:00 AM EST [facility] ([facility]) Psychiatric Diagnostic Evaluation (Non-Medical) 10/23/2020 12:00:00 AM EST - 10/23/2020 12:00:00 AM EST [facility] ([facility]) Psychiatric Diagnostic Evaluation (Non-Medical) 2020 12:00:00 AM EST [facility] ([facility]) Brief Individual Psychotherapy - 30 min 10/12/2020 12:00:00 AM EST - 10/12/2020 12:00:00 AM EST [facility] ([facility]) Brief Individual Psychotherapy - 30 min 10/12/2020 12: 00:00 AM EST [facility] ([facility]) Brief Individual Psychotherapy - 30 min 12/24/2019 12:00:00 AM EDT - 12/24/2019 12:00:00 AM EDT [facility] ([facility]) Brief Individual Psychotherapy - 30 min 12/24/2019 12: 00:00 AM EDT [facility] ([facility]) Brief Individual Psychotherapy - 30 min 11/08/2019 12:00:00 AM EST - 11/08/2019 12:00:00 AM EST [facility] ([facility]) Brief Individual Psychotherapy - 30 min 11/07/2019 12: 00:00 AM EST [facility] ([facility]) Social History Code Duration Value Status Description Data Source(s ) Smoking 11/20/2020 12:00:00 AM EST Unknown if ever smoked comp leted Unknown if ever smoked [facility] ([facility]) Smoking 10/30/2020 12:00:00 AM EST Unknown if ever smoked comp leted Unknown if ever smoked [facility] ([facility]) Smoking 10/23/2020 12:00:00 AM EST Unknown if ever smoked comp leted Unknown if ever smoked [facility] ([facility]) Smoking 10/12/2020 12:00:00 AM EST Unknown if ever smoked comp leted Unknown if ever smoked [facility] ([facility]) Smoking 12/24/2019 12:00:00 AM EDT Unknown if ever smoked comp leted Unknown if ever smoked [facility] ([facility]) Smoking 11/08/2019 12:00:00 AM EST Unknown if ever smoked comp leted Unknown if ever smoked [facility] ([facility]) Vital Signs ID Date Data Source UNK Name Value Range Interpretation Code Description Data Source(s) Body weight 194.00 [lb_av] 194.00 [lb_av] MEDEN T ([facility]) Body temperature 97.4 [degF] 97.4 [degF] [facility] ([facility]) Respiratory rate 18 /min 18 /min [facility] ( [facility]) Heart rate 70 /min 70 /min [facility] ([facility]) Diastolic blood pressure 69 mm[Hg] 69 mm[Hg] [facility] ([facility]) Systolic blood pressure 104 mm[Hg] 104 mm[Hg] M EDENT ([facility])
[2020-11-27 02:02] LABS: ALBUMIN 2.8 GM/DL (3.2-5.2); ALT/SGPT 20 U/L (12-78); BILIRUBIN,TOTAL 0.6 MG/DL (0.2-1.0); BLOOD UREA NITROGEN 13 MG/DL (7-18); CALCIUM LEVEL 8.7 MG/DL (8.5-10.1); CARBON DIOXIDE LEVEL 32 MEQ/L (21-32); CHLORIDE LEVEL 101 MEQ/L (98-107); CREATININE FOR GFR 1.34 MG/DL (0.70-1.30); GLOMERULAR FILTRATION RATE > 60.0 (>60); GLUCOSE, FASTING 105 MG/DL (70-100); POTASSIUM SERUM 3.9 MEQ/L (3.5-5.1); SODIUM LEVEL 138 MEQ/L (136-145); TOTAL PROTEIN 6.8 GM/DL (6.4-8.2)
[2020-11-27] MEDS ORDERED: DOXY100C37 PO (02:22)
[2020-11-27] MEDS ORDERED: PROAAER10 INH (02:22)
[2020-11-27] MEDS ORDERED: TESS100C PO (02:22)
[2020-11-27] MEDS ORDERED: DOXYCYCLINE HYCLATE 100MG TABLET PO ONE (02:30)
--- NOTE | 2020-11-27 02:33 | REPVR ---
PROCEDURE INFORMATION: Exam: XR Chest, 1 View Exam date and time: 11/27/2020 1:14 AM Age: 45 years old Clinical indication: Cough; Additional info: Cough, fatigue TECHNIQUE: Imaging protocol: XR of the chest Views: 1 view. COMPARISON: No relevant prior studies available. FINDINGS: Lungs: Unremarkable. No consolidation. Pleural spaces: Unremarkable. No pleural effusion. No pneumothorax. Heart/Mediastinum: Unremarkable. No cardiomegaly. Bones/joints: Unremarkable. IMPRESSION: No acute findings. Electronically signed by: Jayesh Vang On 11/27/2020 02:32:38 AM
[2020-11-27 02:46] VITALS: BP 130/80
== END 2020-11-27 03:03 | disposition home or self-care (01) ==
LOC: M ED 23:41
DX: J20.9 Acute bronchitis, unspecified (principal); J45.909 Unspecified asthma, uncomplicated; F33.9 Major depressive disorder, recurrent, unspecified; F41.9 Anxiety disorder, unspecified; F17.210 Nicotine dependence, cigarettes, uncomplicated; F12.20 Cannabis dependence, uncomplicated

== ENCOUNTER 2021-04-10 18:21 | Emergency (ER) | payer OTHER ==
[~2021-04-10] VITALS: Ht 172.7 cm; Wt 106.0 kg
[~2021-04-10 18:21] MED LIST changes: +DOXY1CAP62 PO; +IBUP1TAB7 PO; +PROAAER10 INH; +TESS100C PO
[2021-04-10 19:29] LABS: BASO # 0.1 10^3/uL (0.0-0.2); BASO % 0.9 % (0.0-1.0); EOS # 0.3 10^3/uL (0.0-0.5); EOS % 2.2 % (0.0-3.0); HEMATOCRIT 48.7 % (42.0-52.0); HEMOGLOBIN 16.4 g/dl (13.5-17.5); LYMPH # 2.6 10^3/uL (1.5-5.0); LYMPH % 23.2 % (24.0-44.0); MEAN CORPUSCULAR HEMOGLOBIN 30.4 pg (27.0-33.0); MEAN CORPUSCULAR HGB CONC 33.7 g/dl (32.0-36.5); MEAN CORPUSCULAR VOLUME 90.2 fl (80.0-96.0); MONO # 1.4 10^3/uL (0.0-0.8); MONO % 12.5 % (2.0-8.0); NEUTROPHILS # 6.9 10^3/uL (1.5-8.5); NEUTROPHILS % 60.8 % (36.0-66.0); PLATELET COUNT, AUTOMATED 301 10^3/uL (150-450); WHITE BLOOD COUNT 11.4 10^3/uL (4.0-10.0)
[2021-04-10 19:57] LABS: ALBUMIN 3.9 GM/DL (3.2-5.2); ALT/SGPT 68 U/L (12-78); BILIRUBIN,DIRECT < 0.1 MG/DL (0.0-0.2); BILIRUBIN,TOTAL 0.3 MG/DL (0.2-1.0); BLOOD UREA NITROGEN 9 MG/DL (7-18); CALCIUM LEVEL 9.6 MG/DL (8.5-10.1); CARBON DIOXIDE LEVEL 30 MEQ/L (21-32); CHLORIDE LEVEL 105 MEQ/L (98-107); CREATININE FOR GFR 0.98 MG/DL (0.70-1.30); GLOMERULAR FILTRATION RATE > 60.0 (>60); GLUCOSE, FASTING 93 MG/DL (70-100); LIPASE 271 U/L (73-393); POTASSIUM SERUM 4.7 MEQ/L (3.5-5.1); SODIUM LEVEL 139 MEQ/L (136-145)
[2021-04-10] MEDS ORDERED: OLAN10TA2 PO (19:59)
[2021-04-10] MEDS ORDERED: PROP10TA56 PO (19:59)
[2021-04-10] MEDS ORDERED: LAMO100T3 PO (19:59)
[2021-04-10] MEDS ORDERED: BUSP1TAB PO (19:59)
[2021-04-10] MEDS ORDERED: FAMOTIDINE INJ 20MG/2ML VIAL (S0028 PER 1) IVP ONE (21:45)
[2021-04-10] MEDS: GASTROGRAFIN SOLUTION 30ML PO SCH ×2 (22:17→22:47)
[2021-04-10] MEDS ORDERED: ISOVUE-370 76% 100ML VIAL As Ordered ONE (23:11)
--- NOTE | 2021-04-11 01:21 | REPVR ---
PROCEDURE INFORMATION: Exam: CT Abdomen And Pelvis With Contrast Exam date and time: 04/11/2021 12:30 AM Age: 46 years old Clinical indication: Abdominal pain; Periumbilical; Additional info: Umbilical hernia pain TECHNIQUE: Imaging protocol: Computed tomography of the abdomen and pelvis with contrast. Radiation optimization: All CT scans at this facility use at least one of these dose optimization techniques: automated exposure control; mA and/or kV adjustment per patient size (includes targeted exams where dose is matched to clinical indication); or iterative reconstruction. Contrast material: ISOVUE 370; Contrast volume: 100 ml; Contrast route: INTRAVENOUS (IV); COMPARISON: CR PORTABLE CHEST X-RAY 11/27/2020 1:12 AM FINDINGS: Mediastinal space: Circumferential thickening of the distal esophagus. Correlate clinically for evidence of esophagitis. Liver: Hepatomegaly and steatosis. Gallbladder and bile ducts: Normal. No calcified stones. No ductal dilation. Pancreas: Normal. No ductal dilation. Spleen: Normal. No splenomegaly. Adrenal glands: Normal. No mass. Kidneys and ureters: Normal. No hydronephrosis. Stomach and bowel: Diverticulosis of the colon. No evidence of acute diverticulitis. Appendix: No evidence of appendicitis. Intraperitoneal space: Unremarkable. No free air. No significant fluid collection. Vasculature: Unremarkable. No abdominal aortic aneurysm. Lymph nodes: Several borderline enlarged adalberto hepatis and foramen Izabela lymph nodes. Urinary bladder: Unremarkable as visualized. Reproductive: Unremarkable as visualized. Bones/joints: Unremarkable. No acute fracture. Soft tissues: Fat containing paraumbilical and bilateral inguinal hernias. IMPRESSION: Large fat containing paraumbilical hernia. No evidence of bowel obstruction. No clear evidence of omental infarct Electronically signed by: Tito Del Rosario On 04/11/2021 01:21:19 AM
[2021-04-11] MEDS ORDERED: FAMO10TA50 PO (01:53)
[2021-04-11] MEDS ORDERED: COLA100C5 PO (01:53)
[2021-04-11 03:00] VITALS: BP 116/64
== END 2021-04-11 03:17 | disposition home or self-care (01) ==
LOC: M ED 18:21
DX: K29.70 Gastritis, unspecified, without bleeding (principal); K42.9 Umbilical hernia without obstruction or gangrene
CPT/HCPCS: 74177; 80048; 80076; 81001; 83605; 83690; 85025; 96374; 99285; Q9963; Q9967

== ENCOUNTER 2021-12-07 14:11 | Emergency (ER) | payer OTHER ==
[~2021-12-07] VITALS: Ht 172.7 cm; Wt 107.5 kg
[~2021-12-07 14:11] MED LIST changes: +BUSP1TAB PO; +COLA100C5 PO; +DOXY-443 PO; -DOXY1CAP62 PO; +FAMO10TA50 PO; +LAMO100T3 PO; +OLAN1TAB20 PO; +PROP10TA56 PO
[2021-12-07] MEDS ORDERED: KETOROLAC 30 MG/ML 1ML VIAL IV ONE (17:15)
[2021-12-07] MEDS ORDERED: NS 1,000 ML IV ONE (17:15)
[2021-12-07 18:57] LABS: BLOOD UREA NITROGEN 8 MG/DL (7-18); C REACTIVE PROTEIN QUANTITATIV 8.16 MG/DL (0.00-0.30); CALCIUM LEVEL 8.5 MG/DL (8.5-10.1); CARBON DIOXIDE LEVEL 28 MEQ/L (21-32); CHLORIDE LEVEL 104 MEQ/L (98-107); CREATININE FOR GFR 0.88 MG/DL (0.70-1.30); GLOMERULAR FILTRATION RATE > 60.0 (>60); GLUCOSE, FASTING 74 MG/DL (70-100); SODIUM LEVEL 135 MEQ/L (136-145)
[2021-12-07 18:58] LABS: BASO # 0.1 10^3/uL (0.0-0.2); BASO % 0.9 % (0.0-1.0); EOS # 0.2 10^3/uL (0.0-0.5); EOS % 3.1 % (0.0-3.0); HEMATOCRIT 39.3 % (42.0-52.0); HEMOGLOBIN 12.5 g/dl (13.5-17.5); LYMPH # 1.7 10^3/uL (1.5-5.0); LYMPH % 22.7 % (24.0-44.0); MEAN CORPUSCULAR HEMOGLOBIN 29.9 pg (27.0-33.0); MEAN CORPUSCULAR HGB CONC 31.8 g/dl (32.0-36.5); NEUTROPHILS # 4.4 10^3/uL (1.5-8.5); NEUTROPHILS % 58.8 % (36.0-66.0); PLATELET COUNT, AUTOMATED 237 10^3/uL (150-450); RED BLOOD COUNT 4.18 10^6/uL (4.30-6.10); WHITE BLOOD COUNT 7.4 10^3/uL (4.0-10.0)
[2021-12-07 19:37] LABS: ERYTHROCYTE SEDIMENTATION RATE 45 mm/hr (0-15)
[2021-12-07] MEDS ORDERED: HYDR-3713 PO (20:04)
[2021-12-07] MEDS ORDERED: IBUP-1022 PO (20:04)
[2021-12-07] MEDS ORDERED: BACT800T5 PO (20:04)
[2021-12-07 20:07] VITALS: BP 127/76
[2021-12-07] MEDS ORDERED: BACTRIM 160MG/800MG DS TAB PO ONE (20:15)
[2021-12-07] MEDS ORDERED: NORCO 5/325MG TABLET (BULK FOR ED) PO ONE (20:15)
[2021-12-07] MEDS ORDERED: CANEMIS41 XX (20:24)
== END 2021-12-07 20:28 | disposition home or self-care (01) ==
LOC: M ED 14:11
DX: L03.115 Cellulitis of right lower limb (principal); M77.31 Calcaneal spur, right foot; M77.32 Calcaneal spur, left foot; J45.909 Unspecified asthma, uncomplicated; Z79.899 Other long term (current) drug therapy
CPT/HCPCS: 73600; 73630; 80048; 83605; 85025; 85652; 86140; 87040; 93970; 96361; 96374; 99284; J1885

== ENCOUNTER 2021-12-13 11:27 | Emergency (ER) | payer OTHER ==
[~2021-12-13] VITALS: Ht 172.7 cm; Wt 102.0 kg
[~2021-12-13 11:27] MED LIST changes: +BACT800T5 PO; +CANEMIS41 XX; +HYDR-3713 PO; +IBUP-1022 PO
[2021-12-13] MEDS ORDERED: LR 1,000 ML IV SCH (11:50)
[2021-12-13] MEDS ORDERED: BOOSTRIX/ADACEL VACCINE (DIPHTH/PERTUSS/ACELL/TETANUS) 0.5ML SYR IM ONE (11:50)
[2021-12-13 11:53] LABS: HEMATOCRIT 50.3 % (42.0-52.0); HEMOGLOBIN 16.6 g/dl (13.5-17.5); MEAN CORPUSCULAR HEMOGLOBIN 30.1 pg (27.0-33.0); MEAN CORPUSCULAR VOLUME 91.3 fl (80.0-96.0); PLATELET COUNT, AUTOMATED 380 10^3/uL (150-450); RED BLOOD COUNT 5.51 10^6/uL (4.30-6.10); WHITE BLOOD COUNT 12.7 10^3/uL (4.0-10.0)
[2021-12-13] MEDS ORDERED: MORPHINE 4 MG/ML 1ML VIAL/SYRINGE IV ONE (12:20)
[2021-12-13 12:27] LABS: ATYPICAL LYMPH 4 % (0-5); BASOPHILS 3 % (0-1); EOSINOPHILS 1 % (0-3); LYMPHOCYTES 32 % (16-44); MONOCYTES 10 % (0-5); NEUTROPHILS 49 % (28-66); PLATELET ESTIMATE NORMAL (NORMAL)
[2021-12-13 12:44] LABS: CK-MB VALUE MASS 1.7 NG/ML (<3.6); MB/CK RELATIVE INDEX 0.45 (< OR =4)
[2021-12-13 12:45] VITALS: BP 171/91
[2021-12-13 13:01] LABS: APPEARANCE, URINE CLEAR (CLEAR); BACTERIA, URINE AUTO NEGATIVE (NEGATIVE); BILIRUBIN, URINE AUTO NEGATIVE (NEGATIVE); BLOOD, URINE BLOOD NEGATIVE (NEGATIVE); COLOR, URINE YELLOW (YELLOW); GLUCOSE, URINE (UA) AUTO NEGATIVE (NEGATIVE); KETONE, URINE AUTO NEGATIVE (NEGATIVE); LEUKOCYTE ESTERASE, URINE AUTO NEGATIVE (NEGATIVE); MUCUS, URINE SMALL (NEGATIVE); NITRITE, URINE AUTO NEGATIVE (NEGATIVE); PROTEIN, URINE AUTO NEGATIVE (NEGATIVE); RBC, URINE AUTO 0 /HPF (0-3); SPECIFIC GRAVITY URINE AUTO 1.017 (1.002-1.035); SQUAMOUS EPITHELIAL CELL UR AU 0 /HPF (0-6); UROBILINOGEN, URINE AUTO 0.2 mg/dL (0.0-2.0); WBC, URINE AUTO 2 /HPF (0-3)
[2021-12-13 13:05] LABS: ALBUMIN 3.7 GM/DL (3.2-5.2); ALT/SGPT 76 U/L (12-78); AMYLASE 47 U/L (25-115); BILIRUBIN,DIRECT < 0.1 MG/DL (0.0-0.2); BILIRUBIN,TOTAL 0.3 MG/DL (0.2-1.0); BLOOD UREA NITROGEN 15 MG/DL (7-18); CALCIUM LEVEL 9.3 MG/DL (8.5-10.1); CARBON DIOXIDE LEVEL 24 MEQ/L (21-32); CHLORIDE LEVEL 105 MEQ/L (98-107); CREATININE FOR GFR 1.06 MG/DL (0.70-1.30); ETHYL ALCOHOL (ETHANOL) < 0.003 % (0.000-0.010); GLOMERULAR FILTRATION RATE > 60.0 (>60); GLUCOSE, FASTING 125 MG/DL (70-100); LIPASE 239 U/L (73-393); POTASSIUM SERUM 5.1 MEQ/L (3.5-5.1); SODIUM LEVEL 136 MEQ/L (136-145)
[2021-12-13 13:36] LABS: AMPHETAMINES LEVEL URINE POSITIVE (NEGATIVE); BARBITURATES URINE NEGATIVE (NEGATIVE); BENZODIAZEPINES URINE NEGATIVE (NEGATIVE); CANNABINOIDS URINE POSITIVE (NEGATIVE); COCAINE METABOLITE URINE NEGATIVE (NEGATIVE); METHADONE URINE NEGATIVE (NEGATIVE); OPIATES URINE NEGATIVE (NEGATIVE); PHENCYCLIDINE URINE NEGATIVE (NEGATIVE)
[2021-12-13 14:25] LABS: RSV AMPLIFICATION NEGATIVE (NEGATIVE)
== END 2021-12-13 13:30 | disposition short-term general hospital (02) ==
LOC: M ED 11:27
DX: T59.811A Toxic effect of smoke, accidental (unintentional), initial encounter (principal); T20.10XA Burn of first degree of head, face, and neck, unspecified site, initial encounter; T22.20XA Burn of second degree of shoulder and upper limb, except wrist and hand, unspecified site, initial encounter; T21.10XA Burn of first degree of trunk, unspecified site, initial encounter; T31.10 Burns involving 10-19% of body surface with 0% to 9% third degree burns; X00.0XXA Exposure to flames in uncontrolled fire in building or structure, initial encounter; Y92.89 Other specified places as the place of occurrence of the external cause; J45.909 Unspecified asthma, uncomplicated; F17.210 Nicotine dependence, cigarettes, uncomplicated
CPT/HCPCS: 71045; 80048; 80076; 80307; 81001; 82077; 82150; 82375; 82550; 82553; 83690; 85025; 85610; 87631; 90471; 90715; 93041; 94760; 96361; 96374; 99291; J2270

== ENCOUNTER → 2022-08-04 | Outpatient (REF) | payer MEDICAID ==
[2022-08-04 17:19] LABS: HEMATOCRIT 45.5 % (42.0-52.0); HEMOGLOBIN 14.8 g/dl (13.5-17.5); MEAN CORPUSCULAR HGB CONC 32.5 g/dl (32.0-36.5); MEAN CORPUSCULAR VOLUME 92.1 fl (80.0-96.0); PLATELET COUNT, AUTOMATED 271 10^3/uL (150-450); RED BLOOD COUNT 4.94 10^6/uL (4.30-6.10); WHITE BLOOD COUNT 8.5 10^3/uL (4.0-10.0)
[2022-08-04 17:43] LABS: ALBUMIN 3.6 GM/DL (3.2-5.2); ALT/SGPT 65 U/L (12-78); BILIRUBIN,TOTAL 0.2 MG/DL (0.2-1.0); BLOOD UREA NITROGEN 9 MG/DL (7-18); CALCIUM LEVEL 8.9 MG/DL (8.5-10.1); CARBON DIOXIDE LEVEL 28 MEQ/L (21-32); CHLORIDE LEVEL 105 MEQ/L (98-107); CHOLESTEROL LEVEL 231 MG/DL (<200); CHOLESTEROL RISK RATIO 5.372 (<5); CREATININE FOR GFR 1.08 MG/DL (0.70-1.30); GLOMERULAR FILTRATION RATE > 60.0 (>60); GLUCOSE, FASTING 97 MG/DL (70-100); HDL CHOLESTEROL 43 MG/DL (>40); LDL CHOLESTEROL 126 MG/DL (<100); NON-HDL-C 188 MG/DL; POTASSIUM SERUM 4.4 MEQ/L (3.5-5.1); SODIUM LEVEL 137 MEQ/L (136-145); THYROID STIMULATING HORMONE 0.829 uIU/ML (0.358-3.740); TOTAL PROTEIN 7.4 GM/DL (6.4-8.2); TRIGLYCERIDES LEVEL 309 MG/DL (<150)
[2022-08-04 18:15] LABS: TOTAL 25(OH) VITAMIN D 21.9 NG/ML (30.0-100.0)
== END ==
LOC: M LAB REF 16:29
PROVIDERS: ATTEND Physician Assistant
DX: Z13.1 Encounter for screening for diabetes mellitus (principal); E66.9 Obesity, unspecified; Z13.220 Encounter for screening for lipoid disorders; K21.9 Gastro-esophageal reflux disease without esophagitis; E55.9 Vitamin D deficiency, unspecified

== ENCOUNTER → 2022-09-06 | Outpatient (CLI) | payer OTHER | LOC: M RAD 16:11 | PROVIDERS: ATTEND Physician Assistant | DX: Z01.811 Encounter for preprocedural respiratory examination (principal); R06.00 Dyspnea, unspecified; R06.2 Wheezing; F17.210 Nicotine dependence, cigarettes, uncomplicated ==

== ENCOUNTER → 2022-12-28 | Outpatient (CLI) | payer OTHER ==
[~2022-12-28] MED LIST changes: +ALBU8.5H INH; +ALPR0.5T3 PO; +AMOX500C PO; +FAMO40TA3 PO; +HYDR50TA70 PO; +LIDO15SO4; +OMEP-173 PO; +RISP3TAB20 PO; +TRIL1TAB PO; +VITA200010 PO
== END ==
LOC: M LABSMTC 08:26
PROVIDERS: ATTEND Anesthesiology
DX: Z01.812 Encounter for preprocedural laboratory examination (principal)

== ENCOUNTER 2023-01-02 09:11 | Day surgery (SDC) | payer OTHER ==
[~2023-01-02] VITALS: Ht 175.3 cm; Wt 122.4 kg
[2023-01-02] MEDS ORDERED: ceFAZolin SOD 1 GM in D5W MINI-BAG PLUS 50 ML IV ONE (10:00)
[2023-01-02] MEDS ORDERED: CelecoXIB 400 MG CAP PO ONE (10:00)
[2023-01-02] MEDS ORDERED: ceFAZolin SOD 2 GM in IV 1 EA IV ONE (10:00)
[2023-01-02] MEDS ORDERED: SUGAMMADEX SODIUM 500 MG/5 ML VIAL (BRIDION) As Ordered ONE (12:10)
[2023-01-02] MEDS ORDERED: ACETAMINOPHEN 1000MG 100ML IV BAG As Ordered ONE (12:10)
[2023-01-02] MEDS ORDERED: ONDANSETRON 4MG 2ML VIAL As Ordered ONE (12:10)
[2023-01-02] MEDS ORDERED: ROCURONIUM BROMIDE 50MG/5ML VIAL As Ordered ONE (12:10)
[2023-01-02] MEDS ORDERED: KETOROLAC 60MG 2ML VIAL As Ordered ONE (12:10)
[2023-01-02] MEDS ORDERED: propofoL 200 MG/20 ML VIAL As Ordered ONE (12:10)
[2023-01-02] MEDS ORDERED: fentaNYL 100 MCG/2 ML INJECTION As Ordered ONE ×2 (12:10→16:11)
[2023-01-02] MEDS ORDERED: MIDAZOLAM INJ 2MG/2ML VIAL As Ordered ONE (12:10)
[2023-01-02] MEDS ORDERED: LIDOCAINE 2% 100MG/5ML SDV (FOR ANES.) As Ordered ONE (12:10)
[2023-01-02] MEDS ORDERED: BUPIVACAINE LIPOSOME/PF 1.3% 20ML VIAL (13.3MG/ML)(EXPAREL) As Ordered ONE (14:24)
[2023-01-02] MEDS ORDERED: LIDOCAINE 1% SDV 30ML VIAL As Ordered ONE (14:24)
[2023-01-02] MEDS ORDERED: BUPIVACAINE HCL 0.25% 10ML VIAL As Ordered ONE (14:24)
[2023-01-02] MEDS ORDERED: BUPIVACAINE HCL 0.25% 30ML VIAL As Ordered ONE (14:24)
[2023-01-02] MEDS ORDERED: PHENYLephrine 500MCG 5ML (100MCG/ML) SYRINGE As Ordered ONE (15:25)
[2023-01-02] MEDS ORDERED: LR 1,000 ML IV SCH ×2 (16:35)
[2023-01-02] MEDS ORDERED: fentaNYL 100 MCG/2 ML INJECTION IV PRN (16:35)
[2023-01-02] MEDS ORDERED: ONDANSETRON 4MG 2ML VIAL IV PRN (16:35)
[2023-01-02] MEDS: HYDROMORPHONE HCL 0.5 MG/ 0.5 ML SYRINGE IV PRN ×2 (17:20→17:26)
[2023-01-02] MEDS: oxyCODONE 5MG TAB PO PRN ×2 (17:21→18:11)
[2023-01-02] MEDS ORDERED: NORCO, ANEXSIA 5/325MG TABLET (HYDROcodone/ACETAMINOPHEN) PO PRN ×2 (17:50)
[2023-01-02 18:27] VITALS: BP 142/81
[2023-01-02] MEDS ORDERED: LABETALOL 100MG/20ML VIAL As Ordered ONE (18:55)
[2023-01-02] MEDS ORDERED: KETOROLAC 30 MG/ML 1ML VIAL IV SCH (22:00)
== END 2023-01-02 19:25 | disposition home or self-care (01) ==
LOC: M SDC 09:11
PROVIDERS: ATTEND Surgery
DX: K42.0 Umbilical hernia with obstruction, without gangrene (principal); M62.08 Separation of muscle (nontraumatic), other site; E66.01 Morbid (severe) obesity due to excess calories; F17.210 Nicotine dependence, cigarettes, uncomplicated
CPT/HCPCS: 49594; C1781; C9290; J0690; J1100; J1170; J2250; J2370; J2405; J3010; S2900

== ENCOUNTER → 2023-02-23 | Outpatient (REF) | payer OTHER ==
[~2023-02-23] MED LIST changes: +LIDO15SO; -LIDO15SO4
[2023-02-23 17:08] LABS: ALBUMIN 3.4 G/DL (3.2-5.2); ALKALINE PHOSPHATASE 102 U/L (46-116); ALT/SGPT 95 U/L (7.0-40); AST/SGOT 38 U/L (<34); BILIRUBIN,TOTAL 0.4 MG/DL (0.3-1.2); BLOOD UREA NITROGEN 10 MG/DL (9-23); CALCIUM LEVEL 9.1 MG/DL (8.5-10.1); CARBON DIOXIDE LEVEL 30 MMOL/L (20-31); CHLORIDE LEVEL 104 MMOL/L (98-107); CHOLESTEROL LEVEL 212 MG/DL (<200); CHOLESTEROL RISK RATIO 4.47 (<5); CREATININE FOR GFR 0.91 MG/DL (0.70-1.30); GLOMERULAR FILTRATION RATE > 60.0 (>60); GLUCOSE, FASTING 119 MG/DL (60-100); HDL CHOLESTEROL 47.4 MG/DL (>40); NON-HDL-C 164.6 MG/DL; POTASSIUM SERUM 4.1 MMOL/L (3.5-5.1); SODIUM LEVEL 138 MMOL/L (136-145); TRIGLYCERIDES LEVEL 218 MG/DL (<150)
[2023-02-23 17:13] LABS: TOTAL 25(OH) VITAMIN D 27.5 NG/ML (20.0-100.0)
[2023-02-23 17:14] LABS: TESTOSTERONE 144 NG/DL (241-827)
== END ==
LOC: M LAB REF 16:21
PROVIDERS: ATTEND Physician Assistant
DX: E55.9 Vitamin D deficiency, unspecified (principal); F52.21 Male erectile disorder; E78.5 Hyperlipidemia, unspecified

== ENCOUNTER → 2023-05-02 | Outpatient (REF) | payer OTHER ==
[2023-05-02 18:35] LABS: ALBUMIN 3.5 G/DL (3.2-5.2); ALKALINE PHOSPHATASE 99 U/L (46-116); ALT/SGPT 118 U/L (7.0-40); AST/SGOT 40 U/L (<34); BILIRUBIN,TOTAL 0.6 MG/DL (0.3-1.2); BLOOD UREA NITROGEN 12 MG/DL (9-23); CALCIUM LEVEL 9.1 MG/DL (8.5-10.1); CARBON DIOXIDE LEVEL 28 MMOL/L (20-31); CHLORIDE LEVEL 100 MMOL/L (98-107); CREATININE FOR GFR 0.89 MG/DL (0.70-1.30); GLOMERULAR FILTRATION RATE > 60.0 (>56); GLUCOSE, FASTING 164 MG/DL (60-100); POTASSIUM SERUM 3.4 MMOL/L (3.5-5.1); SODIUM LEVEL 136 MMOL/L (136-145); TOTAL PROTEIN 7.5 G/DL (5.7-8.2)
[2023-05-02 19:19] LABS: HEPATITIS C VIRUS ABY INDEX 1.27 INDEX (<0.8)
[2023-05-02 20:33] LABS: HEMOGLOBIN A1c 7.8 % (4.0-6.0)
== END ==
LOC: M LAB REF 17:06
PROVIDERS: ATTEND Physician Assistant
DX: R73.01 Impaired fasting glucose (principal); Z11.59 Encounter for screening for other viral diseases

== ENCOUNTER → 2023-05-19 | Outpatient (CLI) | payer OTHER | LOC: M SLEEP HO 10:56 | PROVIDERS: ATTEND Physician Assistant | DX: R06.83 Snoring (principal); R40.0 Somnolence; G47.30 Sleep apnea, unspecified ==

== ENCOUNTER → 2023-07-06 | Outpatient (REF) | payer OTHER ==
[2023-07-06 18:17] LABS: CREATININE, URINE 136.6 MG/DL; MAU/CREAT RATIO 3.6 MCG/MG (0.0-30.0)
[2023-07-06 18:26] LABS: CHOLESTEROL RISK RATIO 5.56 (<5); HDL CHOLESTEROL 40.1 MG/DL (>40); LDL CHOLESTEROL 112.3 MG/DL (<100); NON-HDL-C 182.9 MG/DL
== END ==
LOC: M LAB REF 16:19
PROVIDERS: ATTEND Physician Assistant
DX: E11.9 Type 2 diabetes mellitus without complications (principal)

== ENCOUNTER 2024-06-27 01:36 | Emergency (ER) | payer MEDICAID, OTHER ==
[~2024-06-27] VITALS: Ht 174 cm; Wt 107.1 kg
[~2024-06-27 01:36] MED LIST changes: +DOXY-323 PO; -DOXY-443 PO; -LIDO15SO; +LIDO15SO8
[2024-06-27 02:26] LABS: HEMATOCRIT 45.7 % (42.0-52.0); HEMOGLOBIN 15.3 g/dl (13.5-17.5); MEAN CORPUSCULAR HEMOGLOBIN 30.4 pg (27.0-33.0); MEAN CORPUSCULAR HGB CONC 33.5 g/dl (32.0-36.5); MEAN CORPUSCULAR VOLUME 90.7 fl (80.0-96.0); PLATELET COUNT, AUTOMATED 315 10^3/uL (150-450); RED BLOOD COUNT 5.04 10^6/uL (4.30-6.10)
[2024-06-27 02:49] LABS: BLOOD UREA NITROGEN 15 MG/DL (9-23); CALCIUM LEVEL 9.5 MG/DL (8.5-10.1); CARBON DIOXIDE LEVEL 27 MMOL/L (20-31); CHLORIDE LEVEL 107 MMOL/L (98-107); CREATININE FOR GFR 0.94 MG/DL (0.70-1.30); GLOMERULAR FILTRATION RATE > 60.0 (>56); GLUCOSE, FASTING 171 MG/DL (60-100); POTASSIUM SERUM 3.9 MMOL/L (3.5-5.1); SODIUM LEVEL 138 MMOL/L (136-145)
[2024-06-27 02:57] LABS: EOSINOPHILS 2 % (0-3); LYMPHOCYTES 36 % (16-44); MONOCYTES 7 % (0-5); NEUTROPHILS 55 % (28-66); PLATELET ESTIMATE NORMAL (NORMAL)
[2024-06-27 03:07] LABS: ERYTHROCYTE SEDIMENTATION RATE 46 mm/hr (0-20)
[2024-06-27] MEDS ORDERED: CEPH500C PO (07:30)
[2024-06-27] MEDS: CEPHALEXIN 500 MG CAP PO ONE (07:33)
[2024-06-27 07:36] VITALS: BP 120/68; TEMP 97.5; O2SAT 96
== END 2024-06-27 07:43 | disposition home or self-care (01) ==
LOC: M ED 01:36
DX: L03.115 Cellulitis of right lower limb (principal); I10 Essential (primary) hypertension; E78.5 Hyperlipidemia, unspecified; K21.9 Gastro-esophageal reflux disease without esophagitis; F20.9 Schizophrenia, unspecified; F31.9 Bipolar disorder, unspecified; F17.210 Nicotine dependence, cigarettes, uncomplicated; F12.10 Cannabis abuse, uncomplicated; F15.10 Other stimulant abuse, uncomplicated; Z79.51 Long term (current) use of inhaled steroids; Z79.2 Long term (current) use of antibiotics; Z79.1 Long term (current) use of non-steroidal anti-inflammatories (NSAID); Z79.899 Other long term (current) drug therapy

== ENCOUNTER → 2024-11-04 | Outpatient (REF) | payer OTHER, MEDICAID ==
[~2024-11-04] MED LIST changes: +CEPH500C PO; -DOXY-323 PO; +DOXY-441 PO
[2024-11-04 13:46] LABS: HEMATOCRIT 48.7 % (42.0-52.0); HEMOGLOBIN 15.9 g/dl (13.5-17.5); MEAN CORPUSCULAR HEMOGLOBIN 29.4 pg (27.0-33.0); MEAN CORPUSCULAR HGB CONC 32.6 g/dl (32.0-36.5); PLATELET COUNT, AUTOMATED 278 10^3/uL (150-450); RED BLOOD COUNT 5.41 10^6/uL (4.30-6.10); WHITE BLOOD COUNT 12.2 10^3/uL (4.0-10.0)
[2024-11-04 13:50] LABS: ALBUMIN 3.7 G/DL (3.2-5.2); ALKALINE PHOSPHATASE 95 U/L (40-129); ALT/SGPT 47 U/L (7.0-40); AST/SGOT 18 U/L (<34); BILIRUBIN,TOTAL 0.5 MG/DL (0.3-1.2); BLOOD UREA NITROGEN 13 MG/DL (9-23); CALCIUM LEVEL 9.2 MG/DL (8.5-10.1); CARBON DIOXIDE LEVEL 29 MMOL/L (20-31); CHLORIDE LEVEL 104 MMOL/L (98-107); CHOLESTEROL LEVEL 219 MG/DL (<200); CHOLESTEROL RISK RATIO 4.39 (<5); CREATININE FOR GFR 0.95 MG/DL (0.70-1.30); GLOMERULAR FILTRATION RATE > 60.0 (>56); GLUCOSE, FASTING 161 MG/DL (60-100); HDL CHOLESTEROL 49.8 MG/DL (>40); LDL CHOLESTEROL 125.4 MG/DL (<100); NON-HDL-C 169.2 MG/DL; POTASSIUM SERUM 4.2 MMOL/L (3.5-5.1); SODIUM LEVEL 140 MMOL/L (136-145); TRIGLYCERIDES LEVEL 219 MG/DL (<150)
[2024-11-04 15:18] LABS: HEMOGLOBIN A1c 8.1 % (4.0-6.0)
== END ==
LOC: M LAB REF 13:00
PROVIDERS: ATTEND Physician Assistant
DX: E11.9 Type 2 diabetes mellitus without complications (principal)